=== PATIENT | female | born 1990 | race Caucasian/White ===

== ENCOUNTER 2017-01-24 15:06 | Emergency (ER) | payer SELFPAY ==
[2017-01-24 15:24] VITALS: BP 116/74
== END 2017-01-24 17:00 | disposition home or self-care (01) ==
LOC: ED 15:06
DX: S61.307A Unspecified open wound of left little finger with damage to nail, initial encounter (principal); Z97.5 Presence of (intrauterine) contraceptive device; X58.XXXA Exposure to other specified factors, initial encounter; Y93.89 Activity, other specified; Y92.89 Other specified places as the place of occurrence of the external cause; Y99.8 Other external cause status
CPT/HCPCS: 90715; A4570; J2001